=== PATIENT | female | born 1950 | race Caucasian/White ===

== ENCOUNTER 2016-10-31 18:22 | Observation (INO) | payer OTHER ==
[~2016-10-31] VITALS: Ht 160 cm; Wt 80.5 kg
[2016-10-31] MEDS ORDERED: SODIUM CHLORIDE 0.9% 1000ML 250 ML IV STA (18:30)
[2016-10-31] MEDS ORDERED: SODIUM CHLORIDE 0.9% 1000ML 1,000 ML IV STA (18:30)
[2016-10-31 18:44] LABS: BASO % 0.6 %; BASO ABS # 0.06 K/uL (0-0.2); COMPLETE YES; EOS % 3.3 %; HEMATOCRIT 42.2 % (37-47); IG% 0.2 %; LYMPH ABS # 2.22 K/uL (1.2-3.4); MEAN CELL VOLUME 87.9 fL (80-100); MEAN CORPUSCULAR HEMOGLOBIN 27.9 pg (25-34); MEAN CORPUSCULAR HGB CONC 31.8 g/dl (32-36); MEAN PLATELET VOLUME 10.8 fL (7.4-10.4); NEUT % 68.9 %; PLATELET COUNT 251 K/uL (130-400); WHITE BLOOD COUNT 10.57 K/uL (4.8-10.8)
--- NOTE | 2016-10-31 18:56 | DIAGNOSTIC IMAGING REPORT ---
CHEST ONE VIEW PORTABLE CLINICAL HISTORY: CHEST PAIN dyspnea COMPARISON STUDY: No previous studies for comparison. FINDINGS: The bones soft tissues and hemidiaphragms are normal. The cardiomediastinal silhouette is normal. The lungs are clear. The pulmonary vasculature is normal. IMPRESSION: Negative chest. Electronically signed by: Tk Carreno M.D. 10/31/2016 6:54 PM Dictated Date/Time: 10/31/2016 6:54 PM
[2016-10-31 19:01] LABS: BUN/CREATININE RATIO 15.9 (10-20); CALCIUM 9.3 mg/dl (8.5-10.1); CREATININE 0.97 mg/dl (0.60-1.20); POTASSIUM 3.8 mmol/L (3.5-5.1)
[2016-10-31 19:02] LABS: PROTHROMBIN TIME (PATIENT) 10.4 SECONDS (9.0-12.0)
[2016-10-31 19:12] LABS: CKMB/CK RATIO 1.9 (0-3.0); THYROID STIMULATING HORMONE 0.815 uIu/ml (0.300-4.500)
--- NOTE | 2016-10-31 19:20 | EMERGENCY ROOM VISIT NOTE ---
History Report prepared by Rita: Elisa Aleman Under the Supervision of: Dr. Norman Hopkins M.D. First contact with patient: 18:23 Chief Complaint: ANXIETY Stated Complaint: CHEST PAIN, ANXIETY History of Present Illness The patient is a 66 year old female who presents to the Emergency Room with complaints of constant chest pain for the past 2 days. The patient states that over the past week she has not been sleeping well. She is doing well throughout the day but states at nighttime she "can't calm down." She typically takes Ativan when she starts feeling anxious and she states that it has not been helping this week. The patient reports that she has been under a lot of stress lately. 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 She also reports a recent in her family. For the past 2 days she has been experiencing chest heaviness and shortness of breath. Today she developed left arm pain and tingling. The patient went to her PCP's office today for her symptoms. Her PCP called an ambulance to bring the patient to the ED for further evaluation. She received aspirin and nitro en route, which she states did not help and gave her a headache and lightheadedness. She also received Ativan IV en route, which did help to alleviate some of her discomfort. The patient denies nausea and vomiting. She denies any personal cardiac history. She notes that she got hit in the left leg 2 weeks ago with a ball. She has pain and swelling to the left leg. Source of History: patient, EMS Onset: 2 days ago Position: chest Quality: pressure Timing: constant Modifying Factors (Worsening): other (stress) Modifying Factors (Relieving): other (Ativan) Associated Symptoms: + SOB, + headache, No nausea, No vomiting Note: Pt notes left arm pain and tingling. Review of Systems See HPI for pertinent positives & negatives. A total of 10 systems reviewed and were otherwise negative. Past Medical & Surgical Medical Problems: (1) Allergic rhinitis (2) Asthma, mild persistent (3) Chest pain (4) Endometriosis (5) Osteopenia Surgical Problems: (1) H/O colonoscopy with polypectomy (2) H/O laparoscopy (3) H/O tubal ligation (4) History of conization of cervix (5) S/P dilatation and curettage (6) S/p nasal/ sinus endoscopy (7) S/P tonsillectomy and adenoidectomy Old medical records were reviewed. Nurse's notes were reviewed and I agree with. Family History FH: heart disease Hypertension Social History Smoking Status: Unknown if Ever Smoked Drug Use: none Occupation Status: employed Current/Historical Medications Scheduled Aspirin (Aspirin Ec), 81 MG PO DAILY Calcium/Vitamin D (Os-Henri 500 Plus D), 1 TAB PO BID Cholecalciferol (Vitamin D), 5,000 UNITS PO DAILY Doxycycline Hyclate (Doxycycline Hyclate), 100 MG PO BID Escitalopram Oxalate (Lexapro), 1 TAB PO DAILY Fluticasone Propionate (Flovent Hfa), 2 PUFFS INH BID Multivitamins/Minerals (Mvi With Minerals), 1 TAB PO DAILY [Nasonex], 2 SPRAYS DENIA DAILY Scheduled PRN Albuterol Sulfate (Proventil Hfa), 2 PUFF INH Q4 PRN for Wheezing Lorazepam (Ativan), 0.5 MG PO TID PRN for Anxiety Allergies Coded Allergies: No Known Allergies (Unverified , 10/31/16) Physical Exam Vital Signs Date Time Temp Pulse Resp B/P Pulse Ox O2 Delivery O2 Flow Rate FiO2 10/31/16 20:33 71 18 123/74 96 Room Air 10/31/16 19:38 70 18 155/89 98 Room Air 10/31/16 19:05 65 16 141/79 92 Room Air 10/31/16 18:40 36.8 70 19 125/73 94 Room Air Physical Exam General: Well developed well nourished non ill appearing older female in no acute distress, breathing comfortably on room air. Normal speech HEENT: Normal cephalic atraumatic. Pupils are equal round and reactive to light. Sclerae anicteric. Extraocular movements are intact. Oropharynx is pink with moist mucous membranes. No swelling of the mouth lips or tongue. Neck: Supple with a midline trachea. No meningeal signs or stiffness, no JVD or bruits. No Stridor. Chest: Clear to auscultation bilaterally. No wheezes or rhonchi. No increased work of breathing. Heart: regular rate and rhythm. Abdomen: Soft nontender, nondistended without rebound guarding or rigidity. Extremities: No cyanosis clubbing or edema. Bruise on the left anterior aguilar. Spine/Back. Non tender to palpation. No CVA tenderness Skin: Good turgor without rashes. Neurologic exam: Cranial nerves two through 12 are intact. Motor and sensation are intact and symmetrical throughout. Medical Decision & Procedures ER Provider Diagnostic Interpretation: Radiology results as stated below per my review and radiologist interpretation: CHEST ONE VIEW PORTABLE CLINICAL HISTORY: CHEST PAIN dyspnea COMPARISON STUDY: No previous studies for comparison. FINDINGS: The bones soft tissues and hemidiaphragms are normal. The cardiomediastinal silhouette is normal. The lungs are clear. The pulmonary vasculature is normal. IMPRESSION: Negative chest. Electronically signed by: Tk Carreno M.D. 10/31/2016 6:54 PM Dictated Date/Time: 10/31/2016 6:54 PM CHEST CTA for PULMONARY ARTERIES CT DOSE: 317.96 mGy.cm HISTORY: Chest pain dyspnea TECHNIQUE: Multiaxial CT images of the chest were performed following the intravenous administration of contrast to evaluate the pulmonary arteries. Maximal intensity projection images were also obtained. COMPARISON STUDY: None. FINDINGS: Thoracic aorta is normal in course and caliber. Pulmonary vasculature enhances appropriately. Poorly defined upper lobe interstitial infiltrative changes bilaterally. There are no consolidative infiltrative changes. Minimal bibasilar interstitial changes are also noted. IMPRESSION: 1. Study is negative for pulmonary embolus. 2. Mild interstitial infiltrative changes pulmonary apices and to a lesser extent lung bases. Electronically signed by: Tk Carreno M.D. 10/31/2016 8:15 PM Dictated Date/Time: 10/31/2016 8:11 PM Laboratory Results 10/31/16 17:46 Test 10/31/16 17:46 10/31/16 18:30 10/31/16 18:57 Prothrombin Time 10.4 SECONDS (9.0-12.0) Prothromb Time International Ratio 1.0 (0.9-1.1) Activated Partial Thromboplast Time 27.1 SECONDS (21.0-31.0) Partial Thromboplastin Ratio 1.0 Anion Gap 7.0 mmol/L (3-11) Est Creatinine Clear Calc Drug Dose 58.6 ml/min Estimated GFR () 71.0 Estimated GFR (Non- 61.3 BUN/Creatinine Ratio 15.9 (10-20) Calcium Level 9.3 mg/dl (8.5-10.1) Magnesium Level 2.2 mg/dl (1.8-2.4) Total Bilirubin 0.5 mg/dl (0.2-1) Direct Bilirubin 0.1 mg/dl (0-0.2) Aspartate Amino Transf (AST/SGOT) 17 U/L (15-37) Alanine Aminotransferase (ALT/SGPT) 32 U/L (12-78) Alkaline Phosphatase 71 U/L (45-117) Total Creatine Kinase 106 U/L (26-192) Creatine Kinase MB 2.0 ng/ml (0.5-3.6) Total Protein 7.9 gm/dl (6.4-8.2) Albumin 4.2 gm/dl (3.4-5.0) Lipase 150 U/L (73-393) Thyroid Stimulating Hormone (TSH) 0.815 uIu/ml (0.300-4.500) Creatine Kinase MB Ratio (0-3.0) Bedside D-Dimer > 450 ng/mlFEU (0-450) Bedside Troponin I 0.000 ng/ml (0-0.045) AW-Ehn-[id number]-Type Natriuretic Peptide 155 pg/ml (0-900) Laboratory studies as stated above per my review. Medications Administered Medications (Trade) Dose Ordered Sig/Ben Route Start Time Stop Time Status Last Admin Dose Admin Sodium Chloride 250 ml @ 999 mls/hr Q16M STAT IV 10/31/16 18:30 10/31/16 18:45 DC 10/31/16 19:04 999 MLS/HR Sodium Chloride (Nss 1000ml) 1,000 ml @ 100 mls/hr Q10H STAT IV 10/31/16 18:30 10/31/16 22:16 DC 10/31/16 18:30 100 MLS/HR ECG Indication: chest pain Rate (beats per minute): 68 Rhythm: normal sinus Findings: no acute ischemic change, no ectopy Comparison ECG Date: no prior available ED Course 1822: Past medical records reviewed. The patient was evaluated in room A9B, and a complete history and physical examination were performed. 0: NSS 1000 ml @ 100 mls/hr IV, NSS 250 ml @ 999 mls/hr IV 1921: I reassessed the patient and she is much more comfortable. 2027: I reassessed the patient at this time. She is feeling better and resting comfortably. I discussed the results and treatment plan with the patient. I answered all pertaining questions that she had. She expressed understanding and verbalized agreement. 2032: I spoke with Dr. Don. We discussed the patients results and treatment plan. [facility]. Medical Decision Differential diagnoses includes anxiety, acute coronary syndrome, arrhythmia, PE , electrolyte or metabolic abnormality. This patient comes in as described above. She was placed in room A9. She is here for treatment and evaluation of chest pain. She was given nitroglycerin and aspirin prior to arrival. She also received Ativan which seemed to help more than anything. She has a history of anxiety but felt this was a little bit different. IV access established, EKG and chest x-ray was obtained as well as multiple blood testing. Chest x-ray does not show congestive heart failure, pneumonia, or pneumothorax. She has no evidence of PE with a negative CT this was done as her d-dimer was elevated. She remained stable. I talked with length she does have multiple cardiac risk factors. I think this most likely is anxiety however we will observe her overnight and do further testing. Dr. Caraballo was consulted and saw the patient the ER for these measures. Consults Time Called: 2028 Consulting Physician: Dr. Don Returned Call: [address] Don. We discussed the patients results and treatment plan. The patient will be evaluated by the [facility] for further management. Impression Primary Impression: Precordial chest pain Additional Impression: Anxiety Scribe Attestation The scribe's documentation has been prepared under my direction and personally reviewed by me in its entirety. I confirm that the note above accurately reflects all work, treatment, procedures, and medical decision making performed by me. Departure Information Dispostion Being Evaluated By Hospitalist Prescriptions Escitalopram Oxalate (LEXAPRO) 10 Mg Tab 1 TAB PO DAILY for 30 Days, #30 TAB 0 Refills Prov: Adela Pinon M.D. 11/01/16 Doxycycline Hyclate (Doxycycline Hyclate) 100 Mg Cap 100 MG PO BID for 5 Days, #10 CAP Prov: Adela Pinon M.D. 11/01/16 Patient Instructions My [facility] Problem Qualifiers
[2016-10-31 19:22] LABS: POINT OF CARE PRO-BNP 155 pg/ml (0-900)
[2016-10-31] MEDS ORDERED: OPTIRAY 320 IV PRN (19:45)
--- NOTE | 2016-10-31 20:17 | DIAGNOSTIC IMAGING REPORT ---
CHEST CTA for PULMONARY ARTERIES CT DOSE: 317.96 mGy.cm HISTORY: Chest pain dyspnea TECHNIQUE: Multiaxial CT images of the chest were performed following the intravenous administration of contrast to evaluate the pulmonary arteries. Maximal intensity projection images were also obtained. COMPARISON STUDY: None. FINDINGS: Thoracic aorta is normal in course and caliber. Pulmonary vasculature enhances appropriately. Poorly defined upper lobe interstitial infiltrative changes bilaterally. There are no consolidative infiltrative changes. Minimal bibasilar interstitial changes are also noted. IMPRESSION: 1. Study is negative for pulmonary embolus. 2. Mild interstitial infiltrative changes pulmonary apices and to a lesser extent lung bases. Electronically signed by: Tk Carreno M.D. 10/31/2016 8:15 PM Dictated Date/Time: 10/31/2016 8:11 PM
[2016-10-31] MEDS ORDERED: ASPI81TA28 PO (21:29)
[2016-10-31] MEDS ORDERED: NASONEX NAE (21:29)
[2016-10-31] MEDS ORDERED: ALBUAER INH (21:29)
[2016-10-31] MEDS ORDERED: FLVHFA110 INH (21:29)
[2016-10-31] MEDS ORDERED: CALC500C70 PO (21:29)
[2016-10-31] MEDS ORDERED: CHOL1TAB42 PO (21:29)
[2016-10-31] MEDS ORDERED: MULT-513 PO (21:29)
[2016-10-31] MEDS ORDERED: LORA-741 PO (21:29)
[2016-10-31] MEDS ORDERED: DOXYCYCLINE HYCLATE 100 MG CAP PO STA (21:57)
[2016-10-31] MEDS ORDERED: LORAZEPAM 2 MG/ML 1 ML VIAL IV PRN (22:00)
[2016-10-31] MEDS ORDERED: LACTATED RINGER'S 1000ML 1,000 ML IV SCH (22:00)
[2016-10-31] MEDS ORDERED: MoRPHine SULFATE 4 MG/ML 1 ML CARP\\VIAL IV PRN (22:00)
[2016-10-31] MEDS ORDERED: IV FLUIDS COMPLETED PRN (22:00)
[2016-10-31] MEDS ORDERED: ONDANSETRON INJ 2 MG/ML 2 ML VIAL IV PRN (22:00)
[2016-10-31] MEDS ORDERED: ENOXAPARIN 40 MG/0.4 ML SYR SC SCH (22:00)
[2016-10-31] MEDS ORDERED: LORAZEPAM 0.5 MG TAB PO PRN (22:00)
[2016-10-31] MEDS ORDERED: NITROGLYCERIN 0.4 MG SL PER TAB CHARGE SL PRN (22:00)
[2016-10-31] MEDS ORDERED: ALBUT/IPRATROP 3MG/0.5MG NEB 3 ML VIAL INH PRN (22:00)
[2016-10-31] MEDS ORDERED: TRAMADOL HCL 50 MG TAB PO PRN (22:00)
[2016-10-31] MEDS ORDERED: ACETAMINOPHEN 325 MG TAB PO PRN (22:00)
[2016-10-31] MEDS ORDERED: ALBUT/IPRATROP 3MG/0.5MG NEB 3 ML VIAL INH STA (22:05)
--- NOTE | 2016-10-31 22:05 | History and Physical ---
History & Physical Date & Time of Service: October 31, 2016 at 21:25 Chief Complaint: Chest Pain, Anxiety Primary Care Physician: Misty Arthur M.D. History of Present Illness Source: patient, family (daughter at bedside, supportive), clinic records This is a 66 year old female with PMH of anxiety, asthma, and other problems listed below who presents to the ED with chest pain. Patient reports increased anxiety for past 1 week. 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 her teenage grandchildren with drug and alcohol issues. 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 She takes PRN lorazepam at home but lately it is not controlling her anxiety. Then today at work she had substernal chest pressure which was constant throughout the day and unrelated to exertion. The pain radiated down her left arm. En route to ER patient reports receiving 3 SL nitro, aspirin, and 0.5 mg IV lorazepam with relief. She is feeling calm and chest pain free now. She does have a RUIZ between her eyes after receiving nitro and feels lightheaded when she stands up. Pt had sore throat last week and since then has productive cough with yellow sputum and mild nasal congestion. She reports chronic SAEED attributed to asthma with no change from baseline. Yesterday she was able to mow the lawn without SAEED. Pt's left lower leg was hit by a softball last week and initially had swelling and pain which resolved. She denies diaphoresis, fever, chills, ear pain, wheezing, vomiting, reflux, abdominal pain, diarrhea, urinary changes, abnormal bleeding, depressed mood. No recent travel, surgery, immobilization. No hx of CAD, HTN, or HL. No prior stress test. Past Medical/Surgical History Medical Problems: (1) Allergic rhinitis Status: Chronic (2) Asthma, mild persistent Status: Chronic (3) Endometriosis Status: Chronic (4) Osteopenia Status: Chronic Surgical Problems: (1) H/O colonoscopy with polypectomy Permanent Comment: 01/2016- hyperplastic Status: Chronic (2) H/O laparoscopy Permanent Comment: for endometriosis Status: Chronic (3) H/O tubal ligation Status: Chronic (4) History of conization of cervix Status: Chronic (5) S/P dilatation and curettage Status: Chronic (6) S/p nasal/ sinus endoscopy Status: Chronic (7) S/P tonsillectomy and adenoidectomy Status: Chronic Family History FH: heart disease FATHER ( of [place] in 90s) UNCLE ( of [place] in 60s) Hypertension Stroke BROTHER Social History Smoking Status: Never Smoker Alcohol Use: socially Housing status: lives alone 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 Physical Exam Vital Signs Date Time Temp Pulse Resp B/P Pulse Ox O2 Delivery O2 Flow Rate FiO2 10/31/16 20:33 71 18 123/74 96 Room Air 10/31/16 19:38 70 18 155/89 98 Room Air 10/31/16 19:05 65 16 141/79 92 Room Air 10/31/16 18:40 36.8 70 19 125/73 94 Room Air General Appearance: WD/WN, no apparent distress, + pertinent finding (pleasant alert 66 year old female, calm but becomes tearful when discussing stressors, daughter supportive at bedside) Head: normocephalic, atraumatic Eyes: normal inspection, PERRL, EOMI ENT: normal ENT inspection, hearing grossly normal, TMs normal, pharynx normal , + pertinent finding (no sinus tenderness) Neck: supple, trachea midline Respiratory/Chest: lungs clear, normal breath sounds, no respiratory distress, no accessory muscle use, + pertinent finding (no wheezing, crackles, or rhonchi) Cardiovascular: regular rate, rhythm, no murmur, normal peripheral pulses Abdomen/GI: normal bowel sounds, non tender, soft Extremities/Musculoskelatal: no calf tenderness, no pedal edema Neurologic/Psych: alert, normal mood/affect, oriented x 3, + pertinent finding (no focal deficit on gross examination) Skin: warm/dry, no rash (no rash on the chest), + pertinent finding (left lower leg ecchymosis, no tenderness to palpation) Diagnostics Laboratory Results Results Past 24 Hours Test 10/31/16 17:46 10/31/16 18:30 10/31/16 18:57 Range/Units White Blood Count 10.57 4.8-10.8 K/uL Red Blood Count 4.80 4.2-5.4 M/uL Hemoglobin 13.4 12.0-16.0 g/dL Hematocrit 42.2 37-47 % Mean Corpuscular Volume 87.9 80-100 fL Mean Corpuscular Hemoglobin 27.9 25-34 pg Mean Corpuscular Hemoglobin Concent 31.8 32-36 g/dl Platelet Count 251 130-400 K/uL Mean Platelet Volume 10.8 7.4-10.4 fL Neutrophils (%) (Auto) 68.9 % Lymphocytes (%) (Auto) 21.0 % Monocytes (%) (Auto) 6.0 % Eosinophils (%) (Auto) 3.3 % Basophils (%) (Auto) 0.6 % Neutrophils # (Auto) 7.29 1.4-6.5 K/uL Lymphocytes # (Auto) 2.22 1.2-3.4 K/uL Monocytes # (Auto) 0.63 0.11-0.59 K/uL Eosinophils # (Auto) 0.35 0-0.5 K/uL Basophils # (Auto) 0.06 0-0.2 K/uL RDW Standard Deviation 42.0 36.4-46.3 fL RDW Coefficient of Variation 12.9 11.5-14.5 % Immature Granulocyte % (Auto) 0.2 % Immature Granulocyte # (Auto) 0.02 0.00-0.02 K/uL Prothrombin Time 10.4 9.0-12.0 SECONDS Prothromb Time International Ratio 1.0 0.9-1.1 Activated Partial Thromboplast Time 27.1 21.0-31.0 SECONDS Partial Thromboplastin Ratio 1.0 Sodium Level 142 136-145 mmol/L Potassium Level 3.8 3.5-5.1 mmol/L Chloride Level 108 98-107 mmol/L Carbon Dioxide Level 27 21-32 mmol/L Anion Gap 7.0 3-11 mmol/L Blood Urea Nitrogen 15 7-18 mg/dl Creatinine 0.97 0.60-1.20 mg/dl Est Creatinine Clear Calc Drug Dose 58.6 ml/min Estimated GFR () 71.0 Estimated GFR (Non- 61.3 BUN/Creatinine Ratio 15.9 10-20 Random Glucose 98 70-99 mg/dl Calcium Level 9.3 8.5-10.1 mg/dl Magnesium Level 2.2 1.8-2.4 mg/dl Total Bilirubin 0.5 0.2-1 mg/dl Direct Bilirubin 0.1 0-0.2 mg/dl Aspartate Amino Transf (AST/SGOT) 17 15-37 U/L Alanine Aminotransferase (ALT/SGPT) 32 12-78 U/L Alkaline Phosphatase 71 45-117 U/L Total Creatine Kinase 106 26-192 U/L Creatine Kinase MB 2.0 0.5-3.6 ng/ml Creatine Kinase MB Ratio 1.9 0-3.0 Total Protein 7.9 6.4-8.2 gm/dl Albumin 4.2 3.4-5.0 gm/dl Lipase 150 73-393 U/L Thyroid Stimulating Hormone (TSH) 0.815 0.300-4.500 uIu/ml Bedside D-Dimer > 450 0-450 ng/mlFEU Bedside Troponin I 0.000 0-0.045 ng/ml [id number] Natriuretic Peptide 155 0-900 pg/ml Diagnostic Radiology CHEST ONE VIEW PORTABLE CLINICAL HISTORY: CHEST PAIN dyspnea COMPARISON STUDY: No previous studies for comparison. FINDINGS: The bones soft tissues and hemidiaphragms are normal. The cardiomediastinal silhouette is normal. The lungs are clear. The pulmonary vasculature is normal. IMPRESSION: Negative chest. CHEST CTA for PULMONARY ARTERIES CT DOSE: 317.96 mGy.cm HISTORY: Chest pain dyspnea TECHNIQUE: Multiaxial CT images of the chest were performed following the intravenous administration of contrast to evaluate the pulmonary arteries. Maximal intensity projection images were also obtained. COMPARISON STUDY: None. FINDINGS: Thoracic aorta is normal in course and caliber. Pulmonary vasculature enhances appropriately. Poorly defined upper lobe interstitial infiltrative changes bilaterally. There are no consolidative infiltrative changes. Minimal bibasilar interstitial changes are also noted. IMPRESSION: 1. Study is negative for pulmonary embolus. 2. Mild interstitial infiltrative changes pulmonary apices and to a lesser extent lung bases. EKG NSR, 68 bpm, nonspecific T wave flattening lead III, no ST abnormality Impression Assessment and Plan CHEST PAIN Rule out ACS given radiation to left arm, relief with nitro Possibly related to anxiety and/or acute bronchitis Initial troponin negative EKG- NSR, no evidence of ischemia CXR- no acute findings CTA chest- negative for PE; + mild interstitial infiltrative changes pulmonary apices and to a lesser extent lung bases Trend serial cardiac enzymes Possible stress test in am ACUTE BRONCHITIS Productive cough x 1 week Patient with underlying asthma CXR shows mild interstitial changes in apices > bases, but no consolidative infiltrative change Will treat with doxycycline, neb treatments ANXIETY Worsened for past 1 week; has multiple stressors including work and family issues On PRN lorazepam at home Psychiatry consulted for possible medication adjustment DVT PROPHYLAXIS Lovenox SQ DISPOSITION Observation to telemetry Follows with Dr. Arthur for primary care Patient seen in collaboration with Dr. Don. Please see his addendum for additional recommendations. Assessment/Plan IM ATTENDING : Patient seen and examined. Preceding documentation by Ms. Татьяна Magallon PA-C, reviewed. FINAL ASSESSMENT AND PLAN as follows: 1. Chest pain possibly from transient BP elevation, overwhelming anxiety from recent personal stressors. Rule out acute coronary syndrome. 2. Complicated bronchitis, no sepsis. Observation PCU exercise stress echo in the morning if AM troponin normal anxiolytic p.r.n. Psych consult RE anxiety. Doxycycline for complicated bronchitis DVT prophylaxis. Lovenox SQ Full code.
[2016-10-31 23:08] VITALS: BP 123/58; PULSE 68; TEMP 36.9; O2SAT 95; Ht 160 cm; Wt 80.5 kg
[2016-10-31 23:52] VITALS: BP 112/66; PULSE 64; TEMP 36.6; O2SAT 96
[2016-11-01] VITALS (7 sets, daily range): BP systolic 98–117; BP diastolic 58–72; PULSE 60–68; TEMP 36.7–37; O2SAT 91–96
--- NOTE | 2016-11-01 01:17 | HISTORY & PHYSICAL EXAMINATION ---
DATE OF ADMISSION: 10/31/2016 IM ATTENDING : Patient seen and examined. Preceding documentation by Ms. Татьяна Magallon PA-C, reviewed. FINAL ASSESSMENT AND PLAN as follows: 1. Chest pain possibly from transient BP elevation, overwhelming anxiety from recent personal stressors. Rule out acute coronary syndrome. 2. Complicated bronchitis, no sepsis. Observation PCU exercise stress echo in the morning if AM troponin normal anxiolytic p.r.n. Psych consult RE anxiety. Doxycycline for complicated bronchitis DVT prophylaxis. Lovenox SQ Full code. MTDD
[2016-11-01 04:23] LABS: BASO % 0.7 %; BASO ABS # 0.06 K/uL (0-0.2); COMPLETE YES; EOS % 5.1 %; HEMATOCRIT 38.2 % (37-47); IG% 0.1 %; LYMPH % 33.3 %; LYMPH ABS # 2.75 K/uL (1.2-3.4); MEAN CORPUSCULAR HEMOGLOBIN 28.8 pg (25-34); MEAN CORPUSCULAR HGB CONC 32.7 g/dl (32-36); MEAN PLATELET VOLUME 10.1 fL (7.4-10.4); MONO % 5.9 %; NEUT % 54.9 %; PLATELET COUNT 207 K/uL (130-400); RED BLOOD COUNT 4.34 M/uL (4.2-5.4); WHITE BLOOD COUNT 8.25 K/uL (4.8-10.8)
[2016-11-01] MEDS ORDERED: DOXYCYCLINE HYCLATE 100 MG CAP PO SCH (09:00)
[2016-11-01] MEDS ORDERED: FLUTICASONE HFA 110MCG INHALER INH SCH (09:00)
[2016-11-01] MEDS ORDERED: CEROVITE ADV FORMULA TAB PO SCH (09:00)
[2016-11-01] MEDS ORDERED: FLUTICASONE PROPIONATE NA SPR 16 GM BTL NAE SCH (09:00)
[2016-11-01] MEDS ORDERED: ASPIRIN 81 MG ECTAB PO SCH (09:00)
--- NOTE | 2016-11-01 11:54 | Medical Student: BHU Only ---
Psychiatric Evaluation IDENTIFYING DATA: Tanya Machuca is a 66-year-old female who currently lives in alone in [place], [place]. Tanya Machuca was admitted to the ER yesterday after being referred by her PCP when she presented to their office with chest pressure , aching left arm pain, and anxiety. Tanya Machuca was brought to the hospital via ambulance. CHIEF COMPLAINT: "chest pressure". HISTORY OF PRESENT ILLNESS: Patient reports increased anxiety x1 week due to family and occupational stressors leading to insomnia. Her current medication regiment did not help relieve her anxiety, however it usually does. She reports racing thoughts at night. At worst, rated her anxiety as a 6 or 7 out of 10, and today rates it as a 0 out of 10. Stressors include family issues, difficult work week, and "bad weekend," and acute bronchitis x1 week. She has a sore throat, hoarseness, and cough productive of yellow sputum without fever. She reported constant chest pressure for one week and sudden episodes of palpitations and tachycardia that seem to come out of nowhere. At worst, her chest pressure was rated as 5 or 6 out of 10, but currently rates it as 0 out of 10. She went to her PCP when the pain radiated to arm and fingers with associated tingling. When having her anxiety attack, she also reports feeling cold. She denies shortness of breath, diaphoresis, N/V, and weight or appetite changes. Currently reports a great night of sleep which she believes helped mitigate her symptoms. She denies anxiety, racing thoughts, chest pain, lightheadedness and tingling currently. Risk of violence to self within the last 6 months: [no] Risk of violence to others within the last 6 months: [no] CURRENT MEDICATIONS: Reported Home Medications Medications Dose Route/Sig Max Daily Dose Days Date Category Vitamin D (Cholecalciferol) 5,000 Unit Tab 5,000 Units PO DAILY 10/31/16 Reported Proventil Hfa (Albuterol Sulfate) 108 Mcg/Act Aer 2 Puff INH Q4 PRN 10/31/16 Reported [Nasonex] 2 Sprays DENIA DAILY 10/31/16 Reported Mvi With Minerals (Multivitamins/Minerals) Tab 1 Tab PO DAILY 10/31/16 Reported Ativan (Lorazepam) 0.5 Mg Tab 0.5 Mg PO TID PRN 10/31/16 Reported Flovent Hfa (Fluticasone Propionate) 120 Puffs/54809 Mcg Aero 2 Puffs INH BID 30 10/31/16 Reported Os-Henri 500 Plus D (Calcium/Vitamin D) Tab 1 Tab PO BID 10/31/16 Reported Aspirin Ec (Aspirin) 81 Mg Tab 81 Mg PO DAILY 10/31/16 Reported PAST PSYCHIATRIC HISTORY: Current outpatient mental health treatment: Lorazepam PRN (see above). PAST MEDICAL HISTORY: Current primary care practitioner is Dr. Arthur. medical history: asthma, allergic rhinitis, osteopenia, endometriosis. surgical history: colonoscopy with polypectomy in 2006, D/C in 1987/1988/2006, tubal ligation in 1976, tonsillectomy and adenoidectomy. Two C-sections for her two children. history of iv drug use: none. ALLERGIES: seasonal, ragweed, cats, and dogs. NKDA. FAMILY HISTORY: Mental Health: none Substance Abuse: grandson Medical history: MS in uncle and father, stroke in brother, hypertension. SUBSTANCE USE HISTORY: Tobacco use hx: lifetime non-smoker. 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 She has two children. Her support system includes her daughter, sister, and neighbors. ROS: CONSTITUTIONAL: No fever, chills, fatigue, or changes in weight or appetite. HEENT: Sore throat and productive cough. CARDIOVASCULAR: No chest pain, tachycardia, or palpitations. RESPIRATORY: No shortness of breath. Productive cough. NEUROLOGICAL: Denies tingling in fingers or any numbness. PSYCHIATRIC: Denies anxious or depressive symptoms. ALLERGIES: As above. Labs, studies, imaging: See ER documentation. PHYSICAL EXAM: MENTAL STATUS EXAM: Appearance is that of well-appearing, pleasant, woman lying in bed wearing a hospital gown. Looks to be younger than stated age. Patient was cooperative with exam. Motor behavior is normal. Speech: rate, volume, and rhythm normal. Mood: "good" Affect: appropriate, reactive, full, and congruent with stated mood. Thought process: goal-directed and linear. Reports racing thoughts with anxiety episodes, but none currently. Thought content: Denies SI or HI. No obsessions, hallucinations, or delusions noted from conversation. Perception: appropriate. Cognition: Patient is alert and oriented to person, place, and time. Memory ( immediate, recent, and remote), attention/concentration, reading/writing, and visuospatial ability were all normal. Fund of knowledge appropriate. Insight and judgement are full. Negative screen for depression. Mini mental exam was 30/30. DIAGNOSTIC IMPRESSION: Chest pain secondary to an acute generalized anxiety disorder exacerbation due to life stressors. DSM-V DIAGNOSIS: 1. Generalized anxiety disorder RECOMMENDATIONS: 1. Reassess for chronic anxiety management by exploring anxiety history further. Consider switching from lorazepam to Klonopin for longer effect duration. If ISAIAS has been chronic, consider switching to an SSRI. Date of Service: November 01, 2016.
--- NOTE | 2016-11-01 13:28 | Progress Note ---
Internal Med Progress Note Date of Service: November 01, 2016. Provider Documentation: SUBJECTIVE: The patient was seen and examined Denies any symptoms Has had stress test this morning OBJECTIVE: Vital Signs-as noted below Exam: General-No distress at rest Eyes-Normal ENT-normal Neck-supple Lungs-Clear to auscultate bilaterally Heart-Regular,no murmur appreciated Abdomen-Benign,no masses,bowel sound present Extremities-No edema Neuro-AAOx3 Lab data as noted below. ASSESSMENT & PLAN: Atypical CHEST PAIN-No ACS and Negative Stress ECHO Possibly related to anxiety and/or acute bronchitis Serial Troponins negative for any ACS EKG- NSR, non specific t wave changes CXR- no acute findings CTA chest- negative for PE; + mild interstitial infiltrative changes pulmonary apices and to a lesser extent lung bases S/P Negative Stress test :::Normal exercise stress echocardiogram. * No echocardiographic evidence of myocardial ischemia having achieved heart rate adequate for diagnostic purposes. * No symptoms suggestive of angina were induced. * Equivocal EKG changes were noted as described below. * The heart rate response to exercise was normal. * RESTING STUDY: * There is normal left ventricular wall thickness. * The LV Ejection Fraction = 60-65%. * The right ventricle is normal in size and function. * A small PFO is present with trace right to left shunt. * There is no significant valvular heart disease. ANXIETY Worsened for past 1 week On PRN lorazepam at home and not adequately controlled Psychiatry consulted -appreciate input and recommendation ACUTE BRONCHITIS Productive cough x 1 week Patient with underlying asthma CXR shows mild interstitial changes in apices > bases, but no consolidative infiltrative change Will treat with doxycycline, neb treatments Continue Doxycycline for 7 days in total DVT PROPHYLAXIS Lovenox SQ DISPOSITION Observation to telemetry Follows with Dr. Arthur for primary care Likely home this afternoon Vital Signs: Date Time Temp Pulse Resp B/P Pulse Ox O2 Delivery O2 Flow Rate FiO2 11/01/16 12:34 36.9 68 16 117/72 91 Room Air 11/01/16 12:00 Room Air 11/01/16 08:38 36.8 60 16 103/64 96 Room Air 11/01/16 08:00 Room Air 11/01/16 04:24 36.7 63 14 98/58 94 Room Air 11/01/16 04:10 94 Room Air 11/01/16 00:00 96 Room Air 10/31/16 23:52 36.6 64 16 112/66 96 Room Air 10/31/16 23:08 36.9 68 18 123/58 95 Room Air 10/31/16 22:01 74 18 125/71 96 Room Air 10/31/16 20:33 71 18 123/74 96 Room Air 10/31/16 19:38 70 18 155/89 98 Room Air 10/31/16 19:05 65 16 141/79 92 Room Air 10/31/16 18:40 36.8 70 19 125/73 94 Room Air Lab Results: Results Past 24 Hours Test 10/31/16 17:46 10/31/16 18:30 10/31/16 18:57 11/01/16 04:10 Range/Units White Blood Count 10.57 8.25 4.8-10.8 K/uL Red Blood Count 4.80 4.34 4.2-5.4 M/uL Hemoglobin 13.4 12.5 12.0-16.0 g/dL Hematocrit 42.2 38.2 37-47 % Mean Corpuscular Volume 87.9 88.0 80-100 fL Mean Corpuscular Hemoglobin 27.9 28.8 25-34 pg Mean Corpuscular Hemoglobin Concent 31.8 32.7 32-36 g/dl Platelet Count 251 207 130-400 K/uL Mean Platelet Volume 10.8 10.1 7.4-10.4 fL Neutrophils (%) (Auto) 68.9 54.9 % Lymphocytes (%) (Auto) 21.0 33.3 % Monocytes (%) (Auto) 6.0 5.9 % Eosinophils (%) (Auto) 3.3 5.1 % Basophils (%) (Auto) 0.6 0.7 % Neutrophils # (Auto) 7.29 4.52 1.4-6.5 K/uL Lymphocytes # (Auto) 2.22 2.75 1.2-3.4 K/uL Monocytes # (Auto) 0.63 0.49 0.11-0.59 K/uL Eosinophils # (Auto) 0.35 0.42 0-0.5 K/uL Basophils # (Auto) 0.06 0.06 0-0.2 K/uL RDW Standard Deviation 42.0 41.5 36.4-46.3 fL RDW Coefficient of Variation 12.9 12.9 11.5-14.5 % Immature Granulocyte % (Auto) 0.2 0.1 % Immature Granulocyte # (Auto) 0.02 0.01 0.00-0.02 K/uL Prothrombin Time 10.4 9.0-12.0 SECONDS Prothromb Time International Ratio 1.0 0.9-1.1 Activated Partial Thromboplast Time 27.1 21.0-31.0 SECONDS Partial Thromboplastin Ratio 1.0 Sodium Level 142 136-145 mmol/L Potassium Level 3.8 3.5-5.1 mmol/L Chloride Level 108 98-107 mmol/L Carbon Dioxide Level 27 21-32 mmol/L Anion Gap 7.0 3-11 mmol/L Blood Urea Nitrogen 15 7-18 mg/dl Creatinine 0.97 0.60-1.20 mg/dl Est Creatinine Clear Calc Drug Dose 58.6 ml/min Estimated GFR () 71.0 Estimated GFR (Non- 61.3 BUN/Creatinine Ratio 15.9 10-20 Random Glucose 98 70-99 mg/dl Calcium Level 9.3 8.5-10.1 mg/dl Magnesium Level 2.2 1.8-2.4 mg/dl Total Bilirubin 0.5 0.2-1 mg/dl Direct Bilirubin 0.1 0-0.2 mg/dl Aspartate Amino Transf (AST/SGOT) 17 15-37 U/L Alanine Aminotransferase (ALT/SGPT) 32 12-78 U/L Alkaline Phosphatase 71 45-117 U/L Total Creatine Kinase 106 26-192 U/L Creatine Kinase MB 2.0 0.5-3.6 ng/ml Creatine Kinase MB Ratio 1.9 0-3.0 Total Protein 7.9 6.4-8.2 gm/dl Albumin 4.2 3.4-5.0 gm/dl Lipase 150 73-393 U/L Thyroid Stimulating Hormone (TSH) 0.815 0.300-4.500 uIu/ml Bedside D-Dimer > 450 0-450 ng/mlFEU Bedside Troponin I 0.000 0-0.045 ng/ml UO-Swf-W-Type Natriuretic Peptide 155 0-900 pg/ml Troponin I < 0.015 0-0.045 ng/ml
--- NOTE | 2016-11-01 14:09 | EXERCISE STRESS ECHO ---
*NOTICE TO RECEIVING CONSTITUTION PARTY AGENCY This information is strictly Confidential and protected under [place] law. [place] law prohibits you from making any further disclosure of this information unless further disclosure is expressly permitted by the written consent of the person to whom it pertains or is authorized by law. A general authorization for the release of medical or other information is not sufficient for this purpose. Hospital accepts no responsibility if the information is made available to any other person, INCLUDING THE PATIENT. Interpretation Summary * Name: EVE BARRIENTOS Study Date: 11/01/2016 09:13 AM BP: 129/79 mmHg * [facility] HR: 74 * : 1950 (M/d/yyyy) Gender: Female Height: 63 in * Age: 66 yrs Ethnicity: [place] Weight: 180 lb * Ordering Physician: Andrew Don * Referring Physician: Self, Referred * Performed By: Goran Vizcaino RCS * * Reason For Study: Chest Pain * BSA: 1.8 m2 * The study was technically adequate. * -- Conclusions -- * STRESS STUDY: * Normal exercise stress echocardiogram. * No echocardiographic evidence of myocardial ischemia having achieved heart rate adequate for diagnostic purposes. * No symptoms suggestive of angina were induced. * Equivocal EKG changes were noted as described below. * The heart rate response to exercise was normal. RESTING STUDY: * There is normal left ventricular wall thickness. * The LV Ejection Fraction = 60-65%. * The right ventricle is normal in size and function. * A small PFO is present with trace right to left shunt. * There is no significant valvular heart disease. Procedure Details * ECHOEX, CPT #[id number] * ECHO COLOR FLOW, CPT #[id number] * ECHO DOPPLER, CPT #[id number] Left Ventricle * The left ventricle is normal in size. * There is normal left ventricular wall thickness. * Left ventricular systolic function is normal. * Ejection Fraction = 60-65%. * Resting wall motion: Normal. Stress wall motion: Appropriate increase in Left ventricular systolic function and decrease in cavity size. No stress induced segmental wall motion abnormalities. Right Ventricle * The right ventricle is normal in size and function. Atria * The left atrial size is normal. * Right atrial size is normal. * A small PFO is present with trace right to left shunt. Mitral Valve * The mitral valve is normal. * There is no mitral valve stenosis. * Significant mitral regurgitation is absent. Tricuspid Valve * The tricuspid valve is normal. * There is no tricuspid stenosis. * Significant tricuspid regurgitation is absent. * Doppler findings do not suggest pulmonary hypertension. Aortic Valve * The aortic valve is trileaflet. * No hemodynamically significant valvular aortic stenosis. * No aortic regurgitation is present. Pulmonic Valve * The pulmonic valve is not well visualized. Great Vessels * The aortic root is normal size. * The inferior vena cava diameter is normal. Pericardium * There is no pericardial effusion. Stress Parameters * The baseline EKG revealed sinus rhythm at [address] segments. * Equivocal 1.5 mm horizontal and upsloping ST depression was noted in the inferior and lateral leads as well as lead V3. * The stress portion of this study was personally supervised by the undersigned interpreting physician. * Rest heart rate was '74' BPM. * Rest blood pressure was '129/79' * Maximum heart rate achieved was 144 bpm. * Maximum heart rate was 92 % of maximum age-predicted heart rate. * Maximum blood pressure was '134/46' * Total exercise time was '6:01' * Maximum exercise MET level achieved was '7' METS * Maximum treadmill speed was '2.5' miles per hour. * Maximum treadmill elevation was '12'% grade. * Exercise was terminated due to 'target heart rate achieved' * Normal blood pressure response to exercise. Left Ventricular Diastolic Function * The left ventricular diastolic function is normal. MMode 2D Measurements and Calculations IVSd 1.1 cm IVSs 1.1 cm LVIDd 4.0 cm LVIDs 2.5 cm LVPWd 0.98 cm LVPWs 1.4 cm IVS/LVPW 1.2 FS 36.9 % EDV(Teich) 70.8 ml ESV(Teich) 23.2 ml EF(Teich) 67.3 % EDV(cubed) 64.9 ml ESV(cubed) 16.3 ml EF(cubed) 74.8 % % IVS thick -0.87 % % LVPW thick 46.9 % LV mass(C)d 140.3 grams LV mass(C)dI 75.9 grams/m\S\2 LV mass(C)s 98.8 grams LV mass(C)sI 53.4 grams/m\S\2 CO(Teich) 3.1 l/min CI(Teich) 1.7 l/min/m\S\2 SV(Teich) 47.6 ml SI(Teich) 25.7 ml/m\S\2 CO(cubed) 3.2 l/min CI(cubed) 1.7 l/min/m\S\2 SV(cubed) 48.5 ml SI(cubed) 26.3 ml/m\S\2 Ao root diam 3.5 cm Ao root area 9.5 cm\S\2 ACS 2.2 cm LA dimension 3.5 cm asc Aorta Diam 2.7 cm LA/Ao 1.0 LVAd ap4 26.5 cm\S\2 LVLd ap4 7.5 cm EDV(MOD-sp4) 78.0 ml LVAs ap4 13.6 cm\S\2 LVLs ap4 5.9 cm ESV(MOD-sp4) 27.0 ml EF(MOD-sp4) 65.4 % LVAd ap2 24.7 cm\S\2 LVLd ap2 7.6 cm EDV(MOD-sp2) 70.0 ml LVAs ap2 12.5 cm\S\2 LVLs ap2 5.8 cm ESV(MOD-sp2) 24.0 ml EF(MOD-sp2) 65.7 % CO(MOD-sp4) 3.3 l/min CI(MOD-sp4) 1.8 l/min/m\S\2 SV(MOD-sp4) 51.0 ml SI(MOD-sp4) 27.6 ml/m\S\2 CO(MOD-sp2) 3.0 l/min CI(MOD-sp2) 1.6 l/min/m\S\2 SV(MOD-sp2) 46.0 ml SI(MOD-sp2) 24.9 ml/m\S\2 Doppler Measurements and Calculations MV E max surjit 67.6 cm/sec MV A max surjit 43.8 cm/sec MV E/A 1.5 MV P1/2t max surjit 88.5 cm/sec MV P1/2t 60.2 msec MVA(P1/2t) 3.7 cm\S\2 MV dec slope 430.7 cm/sec\S\2 MV dec time 0.32 sec Ao V2 max 130.9 cm/sec Ao max PG 6.9 mmHg Ao max PG (full) 1.2 mmHg LV V1 max PG 5.6 mmHg LV V1 max 118.5 cm/sec PA V2 max 83.6 cm/sec PA max PG 2.8 mmHg PI max surjit 132.5 cm/sec PI max PG 7.0 mmHg PI dec slope 111.0 cm/sec\S\2 PI P1/2t 349.5 msec
[2016-11-01] MEDS ORDERED: DXY100 PO (14:55)
--- NOTE | 2016-11-01 14:57 | Discharge Instructions ---
Discharge Instructions Date of Service November 01, 2016. Admission Reason for Admission: Chest Pain Discharge Discharge Diagnosis / Problem: Atypical Chest pain,Negative Stress ECHO Discharge Goals Goal(s): Prevent Disease Progression Activity Recommendations Activity Limitations: resume your previous activity . Instructions / Follow-Up Instructions / Follow-Up Titus's office will call with appointment Current Hospital Diet Patient's current hospital diet: AHA Diet (Heart Healthy) Discharge Diet Recommended Diet: AHA Diet (Heart Healthy) Pending Studies Studies pending at discharge: no Medical Emergencies . Who to Call and When: Medical Emergencies: If at any time you feel your situation is an emergency, please call 911 immediately. . Non-Emergent Contact Non-Emergency issues call your: Primary Care Provider . Past History Medical & Surgical History: (1) Precordial chest pain (2) Anxiety (3) Allergic rhinitis (4) Asthma, mild persistent (5) H/O colonoscopy with polypectomy (6) History of conization of cervix (7) S/P dilatation and curettage (8) H/O laparoscopy (9) S/p nasal/ sinus endoscopy (10) H/O tubal ligation (11) S/P tonsillectomy and adenoidectomy . "Provider Documentation" section prepared by Adela Pinon. . VTE Core Measure Inpt VTE Proph given/why not?: Enoxaparin (Lovenox)SQ
[2016-11-01] MEDS ORDERED: ESCI1TAB9 PO (15:04)
--- NOTE | 2016-11-01 15:14 | Psychiatric Consultation ---
Consultation Date of Consultation November 01, 2016. Identifying Data Tanya Machuca is a 66-year-old female who presented to the emergency room with chest pain and left arm pain. We are consulted to evaluate anxiety. Information is gathered from the patient and considered to be reliable. Chief Complaint "Good". History of Present Illness Tanya lao is a 66-year-old woman with past medical history significant for asthma, osteopenia, endometriosis, who presented to the emergency room at the encouragement of her primary care physician due to complaints of chest pain , pressure in left arm discomfort. Cardiac workup negative to date. The patient admits she's been struggling with anxiety for the last several years. She denies a long pattern of generalized anxiety beyond the last several she does admit both daughter and her sister struggle with anxiety. She had been provided a when necessary prescription for Ativan by her PCP, Dr. Arthur, this had been helpful up until the last few weeks. Recently she's been under additional stress because her daughter who lives in [place] is going through some distress of her own and she also has a grandson struggling with drugs and alcohol. This has meant that her anxiety is controlled only when she is actively engaged in an activity, however when she has down time, she has worried thoughts that invade. This has resulted in disturbed sleep with both difficulty falling asleep as well as staying asleep. She denies that she feels depressed, saying that her mood is "good", and denies any suicidal thinking. When anxious, she will experience chest pain or shortness of breath. She scores a 0 on the pH Q9. She denies any thoughts of self injury, she denies any symptoms that would be congruent bipolar disorder. She denies ever having had any auditory or visual hallucinations. Past Psychiatric History Current OP Treatment: no current treatment Prior OP Treatment: no prior treatment Prior Psych Hospitalizations: none Access to a Gun: No Suicide Attempts: No Past Medication Trials None Past Medical/Surgical History History of Concussion/Seizure: No (1) Precordial chest pain (2) Asthma, mild persistent (3) Osteopenia (4) Endometriosis Allergies Allergies: Coded Allergies: No Known Allergies (Unverified , 10/31/16) Home Medications Scheduled Aspirin (Aspirin Ec), 81 MG PO DAILY Calcium/Vitamin D (Os-Henri 500 Plus D), 1 TAB PO BID Cholecalciferol (Vitamin D), 5,000 UNITS PO DAILY Doxycycline Hyclate (Doxycycline Hyclate), 100 MG PO BID Fluticasone Propionate (Flovent Hfa), 2 PUFFS INH BID Multivitamins/Minerals (Mvi With Minerals), 1 TAB PO DAILY [Nasonex], 2 SPRAYS DENIA DAILY Scheduled PRN Albuterol Sulfate (Proventil Hfa), 2 PUFF INH Q4 PRN for Wheezing Lorazepam (Ativan), 0.5 MG PO TID PRN for Anxiety Family History FH: heart disease FATHER ( of [place] in 90s) UNCLE ( of [place] in 60s) Hypertension Stroke BROTHER History of Suicide: No History of Substance Abuse: No Psychiatric History: No Positive family history for an [place] in father and uncle Alcohol Use Alcohol Use In Past 12 Months: Yes Reports alcohol use is only social, last was several months ago Smoking Use Smoking Status: Never Smoker Personal History Lives in: [place] Relationship History: never Children: 2 daughters Review of Systems Constitutional: denies no symptoms reported, denies see HPI, denies chills, denies diaphoresis, denies fever, denies malaise, denies weakness, denies other Eyes: denies: as stated in HPI, blurred vision, discharge, double vision, eye pain, itching, no symptoms, other, photophobia, redness, tearing, visual changes ENT: denies: dental pain, ear discharge, ear pain, epistaxis, gum swelling, loss of hearing, mouth pain, mouth swelling, nasal congestion, nasal pain, no symptoms reported, other, rhinorrhea, see HPI, sore throat, stidor, throat swelling, tinnitus Cardiovascular: reports: chest pain (with left arm pain prior to admission) Respiratory: reports: short of breath (with her episode of chest pain and with anxiety) Gastrointestinal: denies no symptoms reported, denies see HPI, denies abdominal pain, denies constipation, denies diarrhea, denies nausea, denies vomiting, denies other Genitourinary - Female: denies: amenorrhea, dysmenorrhea, menorrhagia, metrorrhagia, no symptoms, other, , rash, see HPI, vaginal bleeding, vaginal discharge, vaginal itching, vulvadynia Musculoskeletal: denies no symptoms reported, denies see HPI, denies back pain , denies gout, denies joint pain, denies joint swelling, denies muscle pain, denies muscle stiffness, denies neck pain, denies other Integumentary: denies no symptoms reported, denies see HPI, denies change in color, denies change in hair/nails, denies dryness, denies lesions, denies lumps , denies rash, denies other Endocrine: denies: as stated in HPI, cold intolerance, goiter, hair changes, heat intolerance, no symptoms, other, polydipsia, polyuria, skin changes Hematologic / Lymphatic: denies: abnormal clotting, adenopathy, anemia, as stated in HPI, easy bleeding, easy bruising, gums bleeding, no symptoms, other, petechiae Examination Physical Examination As per Dr. Pinon Vital Signs Vital Signs Past 12 Hours Date Time Temp Pulse Resp B/P Pulse Ox O2 Delivery O2 Flow Rate FiO2 11/01/16 12:34 36.9 68 16 117/72 91 Room Air 11/01/16 12:00 Room Air 11/01/16 08:38 36.8 60 16 103/64 96 Room Air 11/01/16 08:00 Room Air 11/01/16 04:24 36.7 63 14 98/58 94 Room Air 11/01/16 04:10 94 Room Air Laboratory Results Last 24 Hours Test 10/31/16 17:46 10/31/16 18:30 10/31/16 18:57 11/01/16 04:10 White Blood Count 10.57 K/uL 8.25 K/uL Red Blood Count 4.80 M/uL 4.34 M/uL Hemoglobin 13.4 g/dL 12.5 g/dL Hematocrit 42.2 % 38.2 % Mean Corpuscular Volume 87.9 fL 88.0 fL Mean Corpuscular Hemoglobin 27.9 pg 28.8 pg Mean Corpuscular Hemoglobin Concent 31.8 g/dl 32.7 g/dl Platelet Count 251 K/uL 207 K/uL Mean Platelet Volume 10.8 fL 10.1 fL Neutrophils (%) (Auto) 68.9 % 54.9 % Lymphocytes (%) (Auto) 21.0 % 33.3 % Monocytes (%) (Auto) 6.0 % 5.9 % Eosinophils (%) (Auto) 3.3 % 5.1 % Basophils (%) (Auto) 0.6 % 0.7 % Neutrophils # (Auto) 7.29 K/uL 4.52 K/uL Lymphocytes # (Auto) 2.22 K/uL 2.75 K/uL Monocytes # (Auto) 0.63 K/uL 0.49 K/uL Eosinophils # (Auto) 0.35 K/uL 0.42 K/uL Basophils # (Auto) 0.06 K/uL 0.06 K/uL RDW Standard Deviation 42.0 fL 41.5 fL RDW Coefficient of Variation 12.9 % 12.9 % Immature Granulocyte % (Auto) 0.2 % 0.1 % Immature Granulocyte # (Auto) 0.02 K/uL 0.01 K/uL Prothrombin Time 10.4 SECONDS Prothromb Time International Ratio 1.0 Activated Partial Thromboplast Time 27.1 SECONDS Partial Thromboplastin Ratio 1.0 Sodium Level 142 mmol/L Potassium Level 3.8 mmol/L Chloride Level 108 mmol/L Carbon Dioxide Level 27 mmol/L Anion Gap 7.0 mmol/L Blood Urea Nitrogen 15 mg/dl Creatinine 0.97 mg/dl Est Creatinine Clear Calc Drug Dose 58.6 ml/min Estimated GFR () 71.0 Estimated GFR (Non- 61.3 BUN/Creatinine Ratio 15.9 Random Glucose 98 mg/dl Calcium Level 9.3 mg/dl Magnesium Level 2.2 mg/dl Total Bilirubin 0.5 mg/dl Direct Bilirubin 0.1 mg/dl Aspartate Amino Transf (AST/SGOT) 17 U/L Alanine Aminotransferase (ALT/SGPT) 32 U/L Alkaline Phosphatase 71 U/L Total Creatine Kinase 106 U/L Creatine Kinase MB 2.0 ng/ml Creatine Kinase MB Ratio 1.9 Total Protein 7.9 gm/dl Albumin 4.2 gm/dl Lipase 150 U/L Thyroid Stimulating Hormone (TSH) 0.815 uIu/ml Bedside D-Dimer > 450 ng/mlFEU Bedside Troponin I 0.000 ng/ml YY-Eps-P-Type Natriuretic Peptide 155 pg/ml Troponin I < 0.015 ng/ml Mental Examination During interview pt is: alert and oriented, cooperative Appearance: appropriately dressed, appropriately groomed Eye contact is: good Motor behavior is: no abnormal motor movements Speech: normal in rate, rhythm & volume Affect: tearful (at times), blunted Mood is: anxious Thought process: goal directed Thought content: reality based without delusions Suicidal thought are: denied Homicidal thoughts are: denied Hallucinations: denies auditory, denies visual Cognition: memory grossly intact, attention grossly intact Intelligence estimated to be: average Insight: good Judgement: good Impression / Recommendations Impression 66-year-old woman admitted to the hospital with chest pain and left arm pain. Cardiovascular workup is requested to evaluate anxiety. She presents with a several year pattern of anxiety worsening under recent stressors, poorly responsive to when necessary benzodiazepines. In view of her pattern of anxiety , I am recommending a trial of an SSRI, specifically Lexapro 10 mg daily. Risks , benefits and alternatives reviewed and accepted. She is also agreeable to seeing a psychiatric professional after discharge and so we will have the liaison nurse return to facilitate that appointment. She apparently will be discharged today and so she should start on 10 mg of Lexapro tomorrow and Dr. Pinon has agreed to write this prescription. Risk Factors Assessment : Yes /single/: Yes Higher / Fall in social status: No Access to guns: No Health problems: Yes Mental Health Diagnoses: Yes Substance use disorders: No Previous attempt: No Previous psychiatric stay: No Smoker: No Protective Factors Assessment Sabianism beliefs: Yes : No Responsible for young children: No Employed: Yes Stable relationships: Yes Recommendations (1) ISAIAS (generalized anxiety disorder) 5/5 -Start 10 mg of Lexapro daily -Refer for outpatient psychiatric follow-up -May continue when necessary Ativan Has been reviewed with Dr. London Woodard
--- NOTE | 2016-11-01 17:43 | Discharge Summary ---
Discharge Summary Date of Service November 01, 2016. Discharge Summary Admission Date: October 31, 2016 at 21:29 Discharge Date: November 01, 2016 Discharge Disposition: Home Principal Diagnosis: Atypical Chest pain,Negative Stress ECHO Secondary Diagnoses/Problems: Please see H&P and Hospital Progress note Consultations: Psychiatry Medication Reconciliation New Medications: Escitalopram Oxalate (Lexapro) 10 Mg Tab 1 TAB PO DAILY for 30 Days, #30 TAB 0 Refills Doxycycline Hyclate (Doxycycline Hyclate) 100 Mg Cap 100 MG PO BID for 5 Days, #10 CAP Continued Medications: Albuterol Sulfate (Proventil Hfa) 108 Mcg/Act Aer 2 PUFF INH Q4 PRN for Wheezing Aspirin (Aspirin Ec) 81 Mg Tab 81 MG PO DAILY Calcium/Vitamin D (Os-Henri 500 Plus D) Tab 1 TAB PO BID, TAB Cholecalciferol (Vitamin D) 5,000 Unit Tab 5000 UNITS PO DAILY Fluticasone Propionate (Flovent Hfa) 120 Puffs/12944 Mcg Aero 2 PUFFS INH BID for 30 Days, #1 INHALER 2 Refills Lorazepam (Ativan) 0.5 Mg Tab 0.5 MG PO TID PRN for Anxiety, TAB Multivitamins/Minerals (Mvi With Minerals) Tab 1 TAB PO DAILY, TAB [Nasonex] () 2 SPRAYS DENIA DAILY Admission Information HPI (per Admitting provider): This is a 66 year old female with PMH of anxiety, asthma, and other problems listed below who presents to the ED with chest pain. Patient reports increased anxiety for past 1 week. 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 her teenage grandchildren with drug and alcohol issues. She tries to cope by keeping busy with cook frozen dessert but when she lies down in bed feels anxiety, palpitations, queasy stomach, insomnia. She takes PRN lorazepam at home but lately it is not controlling her anxiety. Then today at work she had substernal chest pressure which was constant throughout the day and unrelated to exertion. The pain radiated down her left arm. En route to ER patient reports receiving 3 SL nitro, aspirin, and 0.5 mg IV lorazepam with relief. She is feeling calm and chest pain free now. She does have a RUIZ between her eyes after receiving nitro and feels lightheaded when she stands up. Pt had sore throat last week and since then has productive cough with yellow sputum and mild nasal congestion. She reports chronic SAEED attributed to asthma with no change from baseline. Yesterday she was able to mow the lawn without SAEED. Pt's left lower leg was hit by a softball last week and initially had swelling and pain which resolved. She denies diaphoresis, fever, chills, ear pain, wheezing, vomiting, reflux, abdominal pain, diarrhea, urinary changes, abnormal bleeding, depressed mood. No recent travel, surgery, immobilization. No hx of CAD, HTN, or HL. No prior stress test. Past Medical/Surgical History Medical Problems: (1) Allergic rhinitis Status: Chronic (2) Asthma, mild persistent Status: Chronic (3) Endometriosis Status: Chronic (4) Osteopenia Status: Chronic Surgical Problems: (1) H/O colonoscopy with polypectomy Permanent Comment: 01/2016- hyperplastic Status: Chronic (2) H/O laparoscopy Permanent Comment: for endometriosis Status: Chronic (3) H/O tubal ligation Status: Chronic (4) History of conization of cervix Status: Chronic (5) S/P dilatation and curettage Status: Chronic (6) S/p nasal/ sinus endoscopy Status: Chronic (7) S/P tonsillectomy and adenoidectomy Status: Chronic Family History FH: heart disease FATHER ( of [place] in 90s) UNCLE ( of [place] in 60s) Hypertension Stroke BROTHER Social History Smoking Status: Never Smoker Alcohol Use: socially Housing status: lives alone 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 Physical Exam Vital Signs Date Time Temp Pulse Resp B/P Pulse Ox O2 Delivery O2 Flow Rate FiO2 10/31/16 20:33 71 18 123/74 96 Room Air 10/31/16 19:38 70 18 155/89 98 Room Air 10/31/16 19:05 65 16 141/79 92 Room Air 10/31/16 18:40 36.8 70 19 125/73 94 Room Air General Appearance: WD/WN, no apparent distress, + pertinent finding (pleasant alert 66 year old female, calm but becomes tearful when discussing stressors, daughter supportive at bedside) Head: normocephalic, atraumatic Eyes: normal inspection, PERRL, EOMI ENT: normal ENT inspection, hearing grossly normal, TMs normal, pharynx normal , + pertinent finding (no sinus tenderness) Neck: supple, trachea midline Respiratory/Chest: lungs clear, normal breath sounds, no respiratory distress, no accessory muscle use, + pertinent finding (no wheezing, crackles, or rhonchi) Cardiovascular: regular rate, rhythm, no murmur, normal peripheral pulses Abdomen/GI: normal bowel sounds, non tender, soft Extremities/Musculoskelatal: no calf tenderness, no pedal edema Neurologic/Psych: alert, normal mood/affect, oriented x 3, + pertinent finding (no focal deficit on gross examination) Skin: warm/dry, no rash (no rash on the chest), + pertinent finding (left lower leg ecchymosis, no tenderness to palpation) Diagnostics Laboratory Results Results Past 24 Hours Test 10/31/16 17:46 10/31/16 18:30 10/31/16 18:57 Range/Units White Blood Count 10.57 4.8-10.8 K/uL Red Blood Count 4.80 4.2-5.4 M/uL Hemoglobin 13.4 12.0-16.0 g/dL Hematocrit 42.2 37-47 % Mean Corpuscular Volume 87.9 80-100 fL Mean Corpuscular Hemoglobin 27.9 25-34 pg Mean Corpuscular Hemoglobin Concent 31.8 32-36 g/dl Platelet Count 251 130-400 K/uL Mean Platelet Volume 10.8 7.4-10.4 fL Neutrophils (%) (Auto) 68.9 % Lymphocytes (%) (Auto) 21.0 % Monocytes (%) (Auto) 6.0 % Eosinophils (%) (Auto) 3.3 % Basophils (%) (Auto) 0.6 % Neutrophils # (Auto) 7.29 1.4-6.5 K/uL Lymphocytes # (Auto) 2.22 1.2-3.4 K/uL Monocytes # (Auto) 0.63 0.11-0.59 K/uL Eosinophils # (Auto) 0.35 0-0.5 K/uL Basophils # (Auto) 0.06 0-0.2 K/uL RDW Standard Deviation 42.0 36.4-46.3 fL RDW Coefficient of Variation 12.9 11.5-14.5 % Immature Granulocyte % (Auto) 0.2 % Immature Granulocyte # (Auto) 0.02 0.00-0.02 K/uL Prothrombin Time 10.4 9.0-12.0 SECONDS Prothromb Time International Ratio 1.0 0.9-1.1 Activated Partial Thromboplast Time 27.1 21.0-31.0 SECONDS Partial Thromboplastin Ratio 1.0 Sodium Level 142 136-145 mmol/L Potassium Level 3.8 3.5-5.1 mmol/L Chloride Level 108 98-107 mmol/L Carbon Dioxide Level 27 21-32 mmol/L Anion Gap 7.0 3-11 mmol/L Blood Urea Nitrogen 15 7-18 mg/dl Creatinine 0.97 0.60-1.20 mg/dl Est Creatinine Clear Calc Drug Dose 58.6 ml/min Estimated GFR () 71.0 Estimated GFR (Non- 61.3 BUN/Creatinine Ratio 15.9 10-20 Random Glucose 98 70-99 mg/dl Calcium Level 9.3 8.5-10.1 mg/dl Magnesium Level 2.2 1.8-2.4 mg/dl Total Bilirubin 0.5 0.2-1 mg/dl Direct Bilirubin 0.1 0-0.2 mg/dl Aspartate Amino Transf (AST/SGOT) 17 15-37 U/L Alanine Aminotransferase (ALT/SGPT) 32 12-78 U/L Alkaline Phosphatase 71 45-117 U/L Total Creatine Kinase 106 26-192 U/L Creatine Kinase MB 2.0 0.5-3.6 ng/ml Creatine Kinase MB Ratio 1.9 0-3.0 Total Protein 7.9 6.4-8.2 gm/dl Albumin 4.2 3.4-5.0 gm/dl Lipase 150 73-393 U/L Thyroid Stimulating Hormone (TSH) 0.815 0.300-4.500 uIu/ml Bedside D-Dimer > 450 0-450 ng/mlFEU Bedside Troponin I 0.000 0-0.045 ng/ml NM-Soq-H-Type Natriuretic Peptide 155 0-900 pg/ml Diagnostic Radiology CHEST ONE VIEW PORTABLE CLINICAL HISTORY: CHEST PAIN dyspnea COMPARISON STUDY: No previous studies for comparison. FINDINGS: The bones soft tissues and hemidiaphragms are normal. The cardiomediastinal silhouette is normal. The lungs are clear. The pulmonary vasculature is normal. IMPRESSION: Negative chest. CHEST CTA for PULMONARY ARTERIES CT DOSE: 317.96 mGy.cm HISTORY: Chest pain dyspnea TECHNIQUE: Multiaxial CT images of the chest were performed following the intravenous administration of contrast to evaluate the pulmonary arteries. Maximal intensity projection images were also obtained. COMPARISON STUDY: None. FINDINGS: Thoracic aorta is normal in course and caliber. Pulmonary vasculature enhances appropriately. Poorly defined upper lobe interstitial infiltrative changes bilaterally. There are no consolidative infiltrative changes. Minimal bibasilar interstitial changes are also noted. IMPRESSION: 1. Study is negative for pulmonary embolus. 2. Mild interstitial infiltrative changes pulmonary apices and to a lesser extent lung bases. EKG NSR, 68 bpm, nonspecific T wave flattening lead III, no ST abnormality Impression Assessment and Plan CHEST PAIN Rule out ACS given radiation to left arm, relief with nitro Possibly related to anxiety and/or acute bronchitis Initial troponin negative EKG- NSR, no evidence of ischemia CXR- no acute findings CTA chest- negative for PE; + mild interstitial infiltrative changes pulmonary apices and to a lesser extent lung bases Trend serial cardiac enzymes Possible stress test in am ACUTE BRONCHITIS Productive cough x 1 week Patient with underlying asthma CXR shows mild interstitial changes in apices > bases, but no consolidative infiltrative change Will treat with doxycycline, neb treatments ANXIETY Worsened for past 1 week; has multiple stressors including work and family issues On PRN lorazepam at home Psychiatry consulted for possible medication adjustment DVT PROPHYLAXIS Lovenox SQ DISPOSITION Observation to telemetry Follows with Dr. Arthur for primary care Patient seen in collaboration with Dr. Don. Please see his addendum for additional recommendations. Assessment/Plan IM ATTENDING : Patient seen and examined. Preceding documentation by Ms. Татьяна Magallon PA-C, reviewed. FINAL ASSESSMENT AND PLAN as follows: 1. Chest pain possibly from transient BP elevation, overwhelming anxiety from recent personal stressors. Rule out acute coronary syndrome. 2. Complicated bronchitis, no sepsis. Observation PCU exercise stress echo in the morning if AM troponin normal anxiolytic p.r.n. Psych consult RE anxiety. Doxycycline for complicated bronchitis DVT prophylaxis. Lovenox SQ Full code. <Electronically signed by Татьяна Magallon PA-C> Physical Exam (per Admitting): General Appearance: WD/WN, no apparent distress, + pertinent finding ( pleasant alert 66 year old female, calm but becomes tearful when discussing stressors, daughter supportive at bedside) Head: normocephalic, atraumatic Eyes: normal inspection, PERRL, EOMI ENT: normal ENT inspection, hearing grossly normal, TMs normal, pharynx normal, + pertinent finding (no sinus tenderness) Neck: supple, trachea midline Respiratory/Chest: lungs clear, normal breath sounds, no respiratory distress, no accessory muscle use, + pertinent finding (no wheezing, crackles, or rhonchi) Cardiovascular: regular rate, rhythm, no murmur, normal peripheral pulses Abdomen/GI: normal bowel sounds, non tender, soft Extremities/Musculoskelatal: no calf tenderness, no pedal edema Neurologic/Psych: alert, normal mood/affect, oriented x 3, + pertinent finding (no focal deficit on gross examination) Skin: warm/dry, no rash (no rash on the chest), + pertinent finding (left lower leg ecchymosis, no tenderness to palpation) Hospital Course Atypical CHEST PAIN-No ACS and Negative Stress ECHO Possibly related to anxiety and/or acute bronchitis Serial Troponins negative for any ACS EKG- NSR, non specific t wave changes CXR- no acute findings CTA chest- negative for PE; + mild interstitial infiltrative changes pulmonary apices and to a lesser extent lung bases S/P Negative Stress test :::Normal exercise stress echocardiogram. * No echocardiographic evidence of myocardial ischemia having achieved heart rate adequate for diagnostic purposes. * No symptoms suggestive of angina were induced. * Equivocal EKG changes were noted as described below. * The heart rate response to exercise was normal. * RESTING STUDY: * There is normal left ventricular wall thickness. * The LV Ejection Fraction = 60-65%. * The right ventricle is normal in size and function. * A small PFO is present with trace right to left shunt. * There is no significant valvular heart disease. ANXIETY Worsened for past 1 week On PRN lorazepam at home and not adequately controlled Psychiatry consulted -appreciate input and recommendation ACUTE BRONCHITIS Productive cough x 1 week Patient with underlying asthma CXR shows mild interstitial changes in apices > bases, but no consolidative infiltrative change Will treat with doxycycline, neb treatments Continue Doxycycline for 7 days in total DVT PROPHYLAXIS Lovenox SQ DISPOSITION Observation to telemetry Follows with Dr. Arthur for primary care Likely home this afternoon Total time spent on discharge = 35 minutes This includes examination of the patient, discharge planning, medication reconciliation, and communication with other providers. Discharge Instructions Date of Service November 01, 2016. Admission Reason for Admission: Chest Pain Discharge Discharge Diagnosis / Problem: Atypical Chest pain,Negative Stress ECHO Discharge Goals Goal(s): Prevent Disease Progression Activity Recommendations Activity Limitations: resume your previous activity . Instructions / Follow-Up Instructions / Follow-Up Titus's office will call with appointment Current Hospital Diet Patient's current hospital diet: AHA Diet (Heart Healthy) Discharge Diet Recommended Diet: AHA Diet (Heart Healthy) Pending Studies Studies pending at discharge: no Medical Emergencies . Who to Call and When: Medical Emergencies: If at any time you feel your situation is an emergency, please call 911 immediately. . Non-Emergent Contact Non-Emergency issues call your: Primary Care Provider . Past History Medical & Surgical History: (1) Precordial chest pain (2) Anxiety (3) Allergic rhinitis (4) Asthma, mild persistent (5) H/O colonoscopy with polypectomy (6) History of conization of cervix (7) S/P dilatation and curettage (8) H/O laparoscopy (9) S/p nasal/ sinus endoscopy (10) H/O tubal ligation (11) S/P tonsillectomy and adenoidectomy . "Provider Documentation" section prepared by Adela Pinon. . VTE Core Measure Inpt VTE Proph given/why not?: Enoxaparin (Lovenox)SQ <Electronically signed by Adela Pinon M.D.> Additional Copies To Misty Arthur M.D.
[2016-11-02] MEDS ORDERED: ESCITALOPRAM OXALATE 10 MG TAB PO SCH (09:00)
== END 2016-11-01 16:45 | disposition home or self-care (01) ==
LOC: ENRESERVDT → ENRESERVTM → EDBD 18:22 → C.EDA 18:23 → C.2T 21:29
PROVIDERS: ADMIT Internal Medicine; ATTEND Internal Medicine
DX: R07.9 Chest pain, unspecified (principal); J20.9 Acute bronchitis, unspecified; J45.30 Mild persistent asthma, uncomplicated; M85.80 Other specified disorders of bone density and structure, unspecified site; J30.9 Allergic rhinitis, unspecified; Z79.82 Long term (current) use of aspirin; Z79.899 Other long term (current) drug therapy; Z82.49 Family history of ischemic heart disease and other diseases of the circulatory system; Z82.3 Family history of stroke; F41.9 Anxiety disorder, unspecified; N80.9 Endometriosis, unspecified